=== PATIENT | female | born 1990 | race Caucasian/White ===

== ENCOUNTER 2017-06-16 11:41 | Emergency (ER) | payer BC ==
[2017-06-16 12:04] VITALS: BP 108/71; BMI 21.9
--- NOTE | 2017-06-16 12:49 | DR.GENAD ---
HPI - PCP Primary Care Physician: FELICITA DORANTES - HPI Comment HPI Comment: HISTORY BELOW. - Complaint/Symptoms Chief Complaint Doctors Comments: ABDOMINAL PAIN WITH CONSTIPATION. TOOK LAXITIVE BUT STILL CONSTIPATION PRESENT. FEEL BLOATED AND CONCERN ABOUT BOWEL OBSTRUCTION. Chief Complaint:: PT STATES " MAYBE I COULD HAVE A BOWEL BLOCKAGE AND I HAVE BEEN TAKING LAXITIVES AND WHEN I EAT I THROW UP .. PT STATES " WHEN I GO I FELL LIKE I AM STILL STOPPED UP". Self Treatment fo Chief Complaint: PT STATES " I GOOGLED IT " ,.,,, PT STATES " I DO TAKE LAXITIVES BUT I HAVE BEEN SO BUSY WITH WORK THAT I FORGOT TO TAKE THEM ".. - Nurses notes reviewed Nurses Notes Review: Yes - Source History Provided: Patient - Mode of Arrival Mode of Arrival: Ambulatory - Timing Onset of Chief Complaint: 06/13/17 Came on: Suddenly - Duration Duration: Constant Duration: Days - Severity Severity: Moderate PMH - PMH Past Medical History: No Past Surgical History: No - Family History History of Family Medical Conditions: No - Social History Does patient currently use any type of tobacco product: No Have you used tobacco products in the last 12 months: No Type of Tobacco Use: None Does any household member use tobacco: No Alcohol Use: None Do you use any recreational Drugs:: No Lives With: Family Lives Where: Home - infectious screening In the last 2 months have you had wt loss of >10#?: NO Have you had fever, night sweats or hemotysis?: No Have you traveled outside the country in the last 6 months?: No Isolation: Standard ROS - Review of Systems Constitutional: No Symptoms Reported Eyes: No Symptoms Reported ENTM: No Symptoms Reported Respiratoy: No Symptoms Reported Cardiovascular: No Symptoms Reported Gastrointestinal/Abdominal: Abdominal Pain, Constipation Genitourinary: No Symptoms Reported Neurological: No Symptoms Reported Musculoskeletal: No Symptoms Reported Integumentary: No Symptoms Reported Hematologic/Lymphatic: No Symptoms Reported Endocrine: No Symptoms Reported All Other Systems: Reviewed and Negative PE - Vital Signs Vitals: Temperature 98.9 F Pulse Rate 110 Respiratory Rate 18 Blood Pressure 108/71 O2 Sat by Pulse Oximetry 97 - General Limitations: No Limitations General Appearance: Alert - Head Head Exam: Normal Inspection - Eyes Eye exam: Normal Appearance - ENT ENT Exam: Normal External Ear Exam TM/Canal Exam: Bilateral Normal Nose Exam: Normal Nose Exam Mouth Exam: Normal Inspection Throat Exam: Normal Inspection - Neck Neck Exam: Trachea Midline - Chest Chest Inspection: Symmetric Chest Wall Rise - Respiratory Respiratory Exam: Normal Lung Sounds Bilat Respiratory Exam: Bilateral Clear to Auscultation - Cardiovascular Cardiovascular Exam: Regular Rate, Normal Rhythm, Normal Heart Sounds - Abdominal Exam Abdominal Exam: Normal Bowel Sounds, Soft, Tenderness Abdominal Tenderness: RLQ, LLQ, Suprapubic - Extremities Extremities Exam: Normal Inspection - Back Back Exam: Normal Inspection - Neurologic Neurological Exam: Alert, Oriented X3 - Psychiatric Psychiatric Exam: Normal Affect, Normal Mood - Skin Skin Exam: Normal Color MDM - Additional Information Additional Information Obtained From: Family - Differential Diagnosis Differential Diagnosis: ABDOMINAL PAIN, BOWEL OBSTRUCTION, CONSTIPATION Course - Treatment Treatment: SEE ORDERS. - Education/Counseling Education/Counseling: Patient, Family, Education Educated On: Diagnosis, Needs for Follow Up ROR - Labs Reviewed Laboratory Results Reviewed?: Yes Result Diagrams: 06/16/17 13:06 06/16/17 13:06 Laboratory: WBC 5.2 X10^3/uL (3.6-10.0) 06/16/17 13:06 RBC 5.01 X10^6/uL (3.5-5.4) 06/16/17 13:06 Hgb 15.0 g/dL (12.0-16.0) 06/16/17 13:06 Hct 43.2 % (36.0-47.0) 06/16/17 13:06 MCV 86.2 fL (80.0-100.0) 06/16/17 13:06 MCH 29.9 pg (27.0-34.0) 06/16/17 13:06 MCHC 34.7 g/dL (33.0-35.0) 06/16/17 13:06 RDW 12.9 % (11.6-16.5) 06/16/17 13:06 Plt Count 232 X10^3/uL (150.0-450.0) 06/16/17 13:06 MPV 8.0 fL (7.4-11.0) 06/16/17 13:06 Neut % 61.0 % (42.0-75.0) 06/16/17 13:06 Lymph % 26.4 % (21.0-51.0) 06/16/17 13:06 [place] % 8.6 % (0.0-13.0) 06/16/17 13:06 Eos % 3.6 % (0.9-2.9) H 06/16/17 13:06 Baso % 0.4 % (0.2-1.0) 06/16/17 13:06 Neut # 3.2 x10^3/uL (2.2-4.8) 06/16/17 13:06 Lymph # 1.4 X10^3/uL (1.3-2.9) 06/16/17 13:06 [place] # 0.4 x10^3/uL (0.3-0.8) 06/16/17 13:06 Eos # 0.2 x10^3/uL (0.0-0.2) 06/16/17 13:06 Baso # 0.0 X10^3/uL (0.0-0.1) 06/16/17 13:06 Absolute Nucleated RBC 0.0 /100WBC 06/16/17 13:06 Sodium 141 mmol/L (136-145) 06/16/17 13:06 Corrected Sodium TNP 06/16/17 13:06 Potassium 4.0 mmol/L (3.5-5.1) 06/16/17 13:06 Chloride 104 mmol/L (98-107) 06/16/17 13:06 Carbon Dioxide 26.6 mmol/L (21-32) 06/16/17 13:06 BUN 14 mg/dL (7-18) 06/16/17 13:06 Creatinine 0.59 mg/dL (0.55-1.02) 06/16/17 13:06 Est GFR (MDRD) Af Amer > 60 (>60) 06/16/17 13:06 Est GFR (MDRD) Non-Af > 60 (>60) 06/16/17 13:06 Glucose 83 mg/dL (65-99) 06/16/17 13:06 Calcium 9.2 mg/dL (8.5-10.1) 06/16/17 13:06 Corrected Calcium TNP 06/16/17 13:06 Total Bilirubin 0.80 mg/dL (0.2-1.0) 06/16/17 13:06 AST 22 Units/L (15-37) 06/16/17 13:06 ALT 31 Units/L (12-78) 06/16/17 13:06 Alkaline Phosphatase 77 Units/L (46-116) 06/16/17 13:06 Total Protein 7.8 g/dL (6.4-8.2) 06/16/17 13:06 Albumin 4.1 g/dL (3.4-5.0) 06/16/17 13:06 Globulin 3.7 g/dL (2.5-4.5) 06/16/17 13:06 Albumin/Globulin Ratio 1.1 Ratio (1.1-2.1) 06/16/17 13:06 HCG, Qual Negative <10 mIU/mL 06/16/17 13:06 - XRAY XRAY Interpreted by: Radiologist XRAY Findings: REPORT DISCUSS WITH PATIENT. - Diagnosis Discharge Problem: Abdominal pain Qualifiers: Abdominal location: lower abdomen, unspecified Qualified Code(s): R10.30 - Lower abdominal pain, unspecified Constipation Qualifiers: Constipation type: unspecified constipation type Qualified Code(s): K59.00 - Constipation, unspecified - Discharge Plan Condition: Stable Prescriptions: Bisacodyl Rectal [Dulcolax Suppository 10 mg] 10 mg RECTAL HS PRN #12 sup PRN Reason: Magnesium Citrate 295 ml PO ONCE #295 ml - Follow ups/Referrals Follow ups/Referrals: [facility],None [Primary Care Provider] - 3 days - Instructions Instructions: Abdominal Pain, Adult, [id number], Constipation, Adult, Easy-to -Read Additional Instructions: RETURN TO ED IF WORSE.
[2017-06-16 13:13] LABS: BASOPHILS % (AUTO) 0.4 % (0.2-1.0); EOSINOPHILS # (AUTO) 0.2 x10^3/uL (0.0-0.2); EOSINOPHILS % (AUTO) 3.6 % (0.9-2.9); HEMATOCRIT 43.2 % (36.0-47.0); LYMPHOCYTES # (AUTO) 1.4 X10^3/uL (1.3-2.9); LYMPHOCYTES % (AUTO) 26.4 % (21.0-51.0); MEAN CORPUSCULAR HEMOGLOBIN 29.9 pg (27.0-34.0); MEAN CORPUSCULAR HGB CONC 34.7 g/dL (33.0-35.0); MEAN CORPUSCULAR VOLUME 86.2 fL (80.0-100.0); MONOCYTES # (AUTO) 0.4 x10^3/uL (0.3-0.8); MONOCYTES % (AUTO) 8.6 % (0.0-13.0); NEUTROPHILS # (AUTO) 3.2 x10^3/uL (2.2-4.8); PLATELET COUNT 232 X10^3/uL (150.0-450.0); RED BLOOD COUNT 5.01 X10^6/uL (3.5-5.4); RED CELL DISTRIBUTION WIDTH 12.9 % (11.6-16.5); WHITE BLOOD COUNT 5.2 X10^3/uL (3.6-10.0)
[2017-06-16 13:20] LABS: SERUM PREGNANCY TEST, QUAL NEGATIVE <10 mIU/mL
[2017-06-16 13:23] LABS: ALANINE AMINOTRANSFERASE 31 Units/L (12-78); ALBUMIN 4.1 g/dL (3.4-5.0); ALKALINE PHOSPHATASE 77 Units/L (46-116); ASPARTATE AMINO TRANSFERASE 22 Units/L (15-37); BLOOD UREA NITROGEN 14 mg/dL (7-18); CALCIUM 9.2 mg/dL (8.5-10.1); CARBON DIOXIDE 26.6 mmol/L (21-32); CHLORIDE 104 mmol/L (98-107); CREATININE 0.59 mg/dL (0.55-1.02); SODIUM 141 mmol/L (136-145); TOTAL PROTEIN 7.8 g/dL (6.4-8.2); eGFR BLACK RACES > 60 (>60); eGFR NON BLACK RACES > 60 (>60)
--- NOTE | 2017-06-16 14:19 | RAD ---
Examination: Abdomen with PA chest History: Pain and constipation Findings: PA view of the chest demonstrates normal heart size, clear lungs and pleural spaces. In the abdomen: There is no evidence for bowel obstruction, ileus or perforation. There is a large am ount of fecal material distending the colon. No pathologic calcification, visceral enlargement or asc ites. Impression: Normal PA chest. Intestinal gas pattern consistent with constipation. Correlate with hist ory. Reported By:
== END 2017-06-16 14:50 | disposition home or self-care (01) ==
LOC: ER 12:22
DX: R10.31 Right lower quadrant pain (principal); K59.09 Other constipation
CPT/HCPCS: 36415; 74022; 80053; 84703; 85025; 99282; 99284